=== PATIENT | male | born 1995 | race Caucasian/White ===

== ENCOUNTER 2017-11-27 19:17 | Emergency (ER) | payer OTHER ==
[~2017-11-27] VITALS: Ht 175.3 cm; Wt 65.8 kg
[2017-11-27] MEDS ORDERED: KEFLEX500 M1 PO (20:21)
[2017-11-27 20:47] VITALS: BP 99/64
== END 2017-11-27 20:52 ==
LOC: M.ERS 19:17
DX: S61.211A Laceration without foreign body of left index finger without damage to nail, initial encounter (principal); Z23 Encounter for immunization; W26.0XXA Contact with knife, initial encounter; Y93.89 Activity, other specified; Y92.89 Other specified places as the place of occurrence of the external cause; Y99.8 Other external cause status